=== PATIENT | male | born 1975 | race Caucasian/White ===

== ENCOUNTER 2019-06-25 13:34 | Inpatient (IN) | payer OTHER ==
[~2019-06-25] VITALS: Ht 193 cm; Wt 113.9 kg
[2019-06-25] MEDS ORDERED: ASPIRIN 81MG TABLET PO ONE (14:30)
[2019-06-25 15:30] LABS: BASOPHILS % 0.6 % (0.0-2.0); CHLORIDE 106 mEq/L (98-107); EOSINOPHILS % 3.6 % (0.0-5.0); HEMATOCRIT. 45.3 % (42.0-52.0); HEMOGLOBIN. 15.5 g/dL (14.0-18.0); LYMPHOCYTES % 23.1 % (20.0-50.0); MEAN CORPUSCULAR HEMOGLOBIN 29.3 pg (28.0-32.0); MEAN CORPUSCULAR VOLUME 85.4 fL (80.0-94.0); MEAN PLATELET VOLUME 8.3 fl (7.4-10.4); MONOCYTES % 8.6 % (2.0-8.0); NEUTROPHILS % 64.1 % (40.0-76.0); PLATELET 175 x1000/uL (130-400); RED CELL DISTRIBUTION WIDTH 14.2 % (11.6-14.6)
[2019-06-25 15:32] LABS: PARTIAL THROMBOPLASTIN TIME 30.2 sec (23.4-31.0); PROTHROMBIN TIME 10.3 sec (9.6-11.0)
[2019-06-25 15:35] LABS: ETHANOL BLOOD < 10 mg/dL
[2019-06-25 18:48] LABS: CLARITY URINE CLEAR (CLEAR); COLOR URINE YELLOW (YELLOW); KETONES URINE NEGATIVE (NEGATIVE); LEUKOCYTE ESTERASE URINE NEGATIVE (NEGATIVE); NITRITE URINE NEGATIVE (NEGATIVE); OCCULT BLOOD URINE NEGATIVE (NEGATIVE); PH URINE 5.5 (4.5-8.0); PROTEIN URINE NEGATIVE (NEGATIVE); SPECIFIC GRAVITY URINE 1.009 (1.005-1.030); UROBILINOGEN URINE 0.2 E.U./dL (0.2-1.0)
[2019-06-25 19:02] LABS: *AMPHETAMINES SCREEN URINE NEGATIVE (NEGATIVE); *BARBITURATES SCREEN URINE NEGATIVE (NEGATIVE)
[2019-06-25 19:03] LABS: *BENZODIAZEPINES SCREEN URINE NEGATIVE (NEGATIVE); *COCAINE SCREEN URINE NEGATIVE (NEGATIVE); METHADONE URINE SCREEN NEGATIVE (NEGATIVE); OPIATES URINE SCREEN NEGATIVE (NEGATIVE)
[2019-06-25 19:04] LABS: CANNABINOID URINE SCREEN NEGATIVE (NEGATIVE); PHENCYCLIDINE URINE SCREEN NEGATIVE (NEGATIVE)
[2019-06-25 22:00] VITALS: BP 126/84
[2019-06-25 22:10] VITALS: BP 126/84
[2019-06-25] MEDS ORDERED: testosterone (22:37)
[2019-06-25] MEDS: HYDROCODONE/ACETAMINOPHEN 5/325MG TABLET PO PRN (23:45)
[2019-06-26] VITALS: BP 94/61
[2019-06-26 04:00] VITALS: BP 116/67
[2019-06-26 07:41] LABS: CREATINE KINASE MB FRACTION 2.5 ng/mL (0.5-3.6)
[2019-06-26 07:42] LABS: CREATINE KINASE 188 IU/L (39-308)
[2019-06-26 08:00] VITALS: BP 119/76
[2019-06-26] MEDS: PANTOPRAZOLE 40MG DR TABLET PO SCH (08:43)
[2019-06-26] MEDS: ASPIRIN 81MG TABLET PO SCH (08:50)
[2019-06-26] MEDS: ENOXAPARIN 30MG/0.3ML SYR SUBCUT SCH ×2 (09:00→21:00)
[2019-06-26] MEDS ORDERED: ENOXAPARIN 40MG/0.4ML SYR SUBCUT SCH (09:00)
[2019-06-26 12:00] VITALS: BP 128/77
[2019-06-26 13:29] LABS: BASOPHILS % 1.1 % (0.0-2.0); EOSINOPHILS % 4.8 % (0.0-5.0); HEMATOCRIT. 45.7 % (42.0-52.0); HEMOGLOBIN. 15.5 g/dL (14.0-18.0); LYMPHOCYTES % 31.1 % (20.0-50.0); MEAN CORPUSCULAR HEMOGLOBIN 28.8 pg (28.0-32.0); MEAN CORPUSCULAR VOLUME 84.8 fL (80.0-94.0); MEAN PLATELET VOLUME 8.1 fl (7.4-10.4); MONOCYTES % 10.9 % (2.0-8.0); NEUTROPHILS % 52.1 % (40.0-76.0); PLATELET 172 x1000/uL (130-400); RED BLOOD CELL COUNT 5.39 mill/uL (4.7-6.1); RED CELL DISTRIBUTION WIDTH 14.3 % (11.6-14.6)
[2019-06-26 13:45] LABS: CHLORIDE 108 mEq/L (98-107)
[2019-06-26] MEDS: HYDROCODONE/ACETAMINOPHEN 5/325MG TABLET PO PRN (15:18)
[2019-06-26 15:21] LABS: CREATINE KINASE 145 IU/L (39-308)
[2019-06-26 15:23] LABS: CREATINE KINASE MB FRACTION 2.2 ng/mL (0.5-3.6)
[2019-06-26 16:00] VITALS: BP 122/68
[2019-06-26] MEDS ORDERED: HYDRALAZINE 20MG/ML VIAL IV PRN (17:30)
[2019-06-26] MEDS ORDERED: IPRATROPIUM/ALBUTEROL 0.5-3(2.5)MG/3ML NEB HHN PRN (17:30)
[2019-06-26] MEDS ORDERED: LORAZEPAM 2MG/ML CPJ IV PRN (17:30)
[2019-06-26] MEDS ORDERED: DIPHENHYDRAMINE 50MG/ML VIAL IV PRN (17:30)
[2019-06-26 20:00] VITALS: BP 116/74
[2019-06-26] MEDS ORDERED: ATORVASTATIN CALCIUM 20MG TABLET PO SCH (21:00)
[2019-06-26] MEDS ORDERED: LACTULOSE 20G/30ML UDC PO PRN (21:00)
[2019-06-27] VITALS: BP 116/76
[2019-06-27] MEDS ORDERED: DEXT 5%/0.45% NACL 1000ML 1,000 ML IV SCH
[2019-06-27 01:08] LABS: CREATINE KINASE 118 IU/L (39-308)
[2019-06-27 01:09] LABS: CREATINE KINASE MB FRACTION 1.6 ng/mL (0.5-3.6)
[2019-06-27 04:00] VITALS: BP 120/80
[2019-06-27 06:35] LABS: CHLORIDE 107 mEq/L (98-107)
[2019-06-27 07:07] LABS: HEMATOCRIT 46.6 % (42.0-52.0); HEMOGLOBIN 15.9 g/dL (14.0-18.0); MEAN CORPUSCULAR HEMOGLOBIN 29.1 pg (28.0-32.0); MEAN CORPUSCULAR VOLUME 85.1 fL (80.0-94.0); PLATELET 174 x1000/uL (130-400); RED BLOOD CELL COUNT 5.48 mill/uL (4.7-6.1); RED CELL DISTRIBUTION WIDTH 13.8 % (11.6-14.6)
[2019-06-27 08:00] VITALS: BP 121/79
[2019-06-27] MEDS: ENOXAPARIN 30MG/0.3ML SYR SUBCUT SCH (09:00)
[2019-06-27] MEDS ORDERED: REGADENOSON 0.4 MG/5 ML IV ONE ×2 (09:46→11:15)
[2019-06-27] MEDS ORDERED: CAFFEINE CITRATE 20MG/ML 3ML VIAL IV ONE (09:46)
[2019-06-27] MEDS ORDERED: ATOR10TA MT (13:00)
[2019-06-27] MEDS ORDERED: ASPI-1393 MT (13:00)
[2019-06-27] MEDS: ASPIRIN 81MG TABLET PO SCH (13:37)
[2019-06-27] MEDS: PANTOPRAZOLE 40MG DR TABLET PO SCH (13:37)
== END 2019-06-27 14:15 | disposition home or self-care (01) | DRG 293 ==
LOC: ER 14:40 → EDBEDREQ 18:28 → 7WST 18:29 → ENRESERV 21:18
PROVIDERS: ADMIT Internal Medicine; ATTEND Internal Medicine
DX: I11.0 Hypertensive heart disease with heart failure (principal); I50.33 Acute on chronic diastolic (congestive) heart failure; F41.9 Anxiety disorder, unspecified; E78.5 Hyperlipidemia, unspecified; E66.9 Obesity, unspecified; E78.00 Pure hypercholesterolemia, unspecified; Z79.899 Other long term (current) drug therapy
CPT/HCPCS: 36415; 71045; 78452; 80048; 80061; 80305; 80320; 81003; 82550; 82553; 83036; 83735; 83880; 84443; 84484; 85027; 85379; 93005; 93017; 93306; 93880; 99285; A9500; J0706; J1650; J2785; G0480

== ENCOUNTER 2022-04-07 11:32 | Emergency (ER) | payer OTHER ==
[~2022-04-07] VITALS: Ht 193 cm; Wt 120.0 kg
[~2022-04-07 11:32] MED LIST: ASPI-1497 MT; ATOR10TA MT; testosterone
[2022-04-07] MEDS ORDERED: ACETAMINOPHEN WITH CODEINE 300/30MG TABLET PO STA (15:06)
[2022-04-07 15:25] LABS: EOSINOPHILS % 3.2 % (0.0-5.0); HEMATOCRIT. 46.1 % (42.0-52.0); HEMOGLOBIN. 15.8 g/dL (14.0-18.0); LYMPHOCYTES % 31.3 % (20.0-50.0); MEAN CORPUSCULAR HEMOGLOBIN 28.9 pg (28.0-32.0); MEAN CORPUSCULAR VOLUME 84.1 fL (80.0-94.0); MEAN PLATELET VOLUME 8.1 fl (7.4-10.4); MONOCYTES % 9.4 % (2.0-8.0); NEUTROPHILS % 55.1 % (40.0-76.0); PLATELET 221 x1000/uL (130-400); RED BLOOD CELL COUNT 5.48 mill/uL (4.7-6.1); RED CELL DISTRIBUTION WIDTH 13.6 % (11.6-14.6)
[2022-04-07 15:33] LABS: CHLORIDE 104 mEq/L (98-107)
[2022-04-07] MEDS ORDERED: CEPH500C2 MT ×2 (19:21)
[2022-04-07] MEDS ORDERED: IBUP-2029 MT (19:21)
[2022-04-07 19:50] VITALS: BP 145/86
== END 2022-04-07 19:53 | disposition home or self-care (01) ==
LOC: ER 11:32
DX: N13.2 Hydronephrosis with renal and ureteral calculous obstruction (principal); D17.9 Benign lipomatous neoplasm, unspecified; E78.00 Pure hypercholesterolemia, unspecified; Z98.890 Other specified postprocedural states; Z79.82 Long term (current) use of aspirin; Z91.018 Allergy to other foods; Z91.013 Allergy to seafood
CPT/HCPCS: 36415; 74176; 80053; 85025; 99284